=== PATIENT | male | born 1945 | race Caucasian/White ===

== ENCOUNTER 2017-08-28 09:03 | Day surgery (SDC) | payer MEDICARE ==
[2017-08-28] VITALS (17 sets, daily range): BP systolic 128–190; BP diastolic 54–67
[~2017-08-28] VITALS: Ht 177.8 cm; Wt 170.1 kg
[~2017-08-28 09:03] MED LIST: AMLO10TA2 PO; ASPI-1197 PO; CHLO50TA PO; CYAN-35 PO; HUMALOG KWIK PEN SQ; INSLAN SQ; LOSA100T29 PO; OMEP20TA25 PO; PRAV40TA3 PO; SODIUM CHLORIDE 0.9% 1000ML 1,000 ML IV ONE; SPIR25TA6 PO; isosorbide PO; metoprolol PO
[2017-08-28] MEDS ORDERED: KETAMINE HCL 100 MG/ML 5ML VIAL IJ ONE (10:45)
[2017-08-28] MEDS ORDERED: PROPOFOL 10 MG/ML 20ML VIAL IV ONE (10:47)
[2017-08-28] MEDS ORDERED: GLYCOPYRROLATE 0.2 MG/ML 5 ML VIAL ONE (10:49)
== END 2017-08-28 13:28 | disposition home or self-care (01) ==
LOC: DAH 09:03 → SUH 09:03
PROVIDERS: ATTEND Internal Medicine Gastroenterology
DX: D12.3 Benign neoplasm of transverse colon (principal); K57.30 Diverticulosis of large intestine without perforation or abscess without bleeding; D50.8 Other iron deficiency anemias; K21.9 Gastro-esophageal reflux disease without esophagitis; I10 Essential (primary) hypertension; E78.5 Hyperlipidemia, unspecified; I25.10 Atherosclerotic heart disease of native coronary artery without angina pectoris; G47.33 Obstructive sleep apnea (adult) (pediatric); E11.9 Type 2 diabetes mellitus without complications; M19.90 Unspecified osteoarthritis, unspecified site; I25.2 Old myocardial infarction; Z95.1 Presence of aortocoronary bypass graft; Z98.890 Other specified postprocedural states; Z79.899 Other long term (current) drug therapy; Z79.82 Long term (current) use of aspirin; Z79.4 Long term (current) use of insulin
CPT/HCPCS: 43235; 45385; 82948 ×4; 88305; 93005; A4606; J2704; J3490 ×2; J7030

== ENCOUNTER → 2020-06-22 | Outpatient (CLI) | payer MEDICARE ==
[~2020-06-22] MED LIST changes: +AMLO-258 PO; -AMLO10TA2 PO; -LOSA100T29 PO; +LOSA100T58 PO; -SODIUM CHLORIDE 0.9% 1000ML 1,000 ML IV ONE
== END | disposition home or self-care (01) ==
LOC: SHCH 11:13
PROVIDERS: ATTEND Internal Medicine Cardiovascular Disease
DX: I25.10 Atherosclerotic heart disease of native coronary artery without angina pectoris (principal); R06.02 Shortness of breath
CPT/HCPCS: 93306

== ENCOUNTER → 2022-11-11 | Outpatient (CLI) | payer MEDICARE ==
[~2022-11-11] MED LIST changes: -LOSA100T58 PO; +LOSA100T59 PO; +OMEP20TA20 PO; -OMEP20TA25 PO
== END | disposition home or self-care (01) ==
LOC: SHCH 09:34
PROVIDERS: ATTEND Internal Medicine Cardiovascular Disease
DX: I87.2 Venous insufficiency (chronic) (peripheral) (principal)
CPT/HCPCS: 93970